=== PATIENT | female | born 1960 | race Native Hawaiian/Other Pacific Islander ===

== ENCOUNTER 2018-05-04 21:55 | Emergency (ER) | payer OTHER ==
[~2018-05-04] VITALS: Ht 162.6 cm; Wt 88.9 kg
[2018-05-04 21:55] VITALS: BP 142/41; TEMP 97.7
[~2018-05-04 21:55] MED LIST: ABILIFY 10MG TAB PO; ADVIL200 M1 PO; CLOTRIMAZOLE TOP; DICL1GEL2 TOP; DIVA250T PO; DOCU100C10 PO; HALO5INJ3 IM; HALOPERIDOL20 MG PO; INSUINJ20 SC; LEVO0.0529 PO; MULTIVITAMI1 PO; SERT50TA PO; SERTRALINE HYDR50 MG PO; TRAZ50TA36 PO
[2018-05-04 22:28] LABS: PLATELET COUNT 238 K/uL (152-353)
[2018-05-04 22:39] LABS: POTASSIUM 3.3 mmol/L (3.6-5.2)
[2018-05-05] MEDS ORDERED: [UNRECOGNIZED DRUG - OTHER] EX (10:18)
[2018-05-05] MEDS ORDERED: FINGERSTIX (10:20)
== END 2018-05-05 00:18 | disposition other institution (70) ==
LOC: ED 21:55
PROVIDERS: Family Medicine
DX: R46.89 Other symptoms and signs involving appearance and behavior (principal); F20.89 Other schizophrenia; R00.1 Bradycardia, unspecified; Z04.6 Encounter for general psychiatric examination, requested by authority
CPT/HCPCS: 80053; 81000; 85027; 93005; 99285